=== PATIENT | female | born 1960 | race Two or more races ===

== ENCOUNTER 2018-01-27 12:03 | Outpatient (CLI) | payer OTHER ==
[~2018-01-27 12:03] MED LIST: CATAFLAM50 MG PO; ORPH100T PO; PRISTIQ ER50 MG; RESTORIL30 M1; TRANXENE T-TA3.75 MG
== END 2018-01-27 16:23 | disposition home or self-care (01) ==
LOC: SONOGRAMA 12:03
DX: E06.9 Thyroiditis, unspecified (principal); E03.5 Myxedema coma; E11.65 Type 2 diabetes mellitus with hyperglycemia

== ENCOUNTER 2018-07-31 09:58 | Outpatient (CLI) | payer OTHER | END 2018-07-31 10:04 | disposition home or self-care (01) | LOC: SONOGRAMA 09:58 | DX: E05.00 Thyrotoxicosis with diffuse goiter without thyrotoxic crisis or storm (principal); E04.1 Nontoxic single thyroid nodule ==

== ENCOUNTER → 2018-07-31 13:47 | Outpatient (CLI) | payer OTHER | END | disposition home or self-care (01) | LOC: LAB 13:47 | DX: E05.00 Thyrotoxicosis with diffuse goiter without thyrotoxic crisis or storm (principal); E04.1 Nontoxic single thyroid nodule; E11.65 Type 2 diabetes mellitus with hyperglycemia ==

== ENCOUNTER 2018-08-09 13:44 | Outpatient (CLI) | payer OTHER | END 2018-08-09 13:47 | disposition home or self-care (01) | LOC: SONOGRAMA 13:44 | DX: R10.2 Pelvic and perineal pain (principal); E05.21 Thyrotoxicosis with toxic multinodular goiter with thyrotoxic crisis or storm; E78.4 Other hyperlipidemia; J32.8 Other chronic sinusitis; G43.901 Migraine, unspecified, not intractable, with status migrainosus; F51.05 Insomnia due to other mental disorder; H53.8 Other visual disturbances ==

== ENCOUNTER → 2019-05-01 | Outpatient (CLI) | payer OTHER | END | disposition home or self-care (01) | LOC: SONOGRAMA 13:19 → MAMO-SONO 14:15 | DX: E05.00 Thyrotoxicosis with diffuse goiter without thyrotoxic crisis or storm (principal); E04.1 Nontoxic single thyroid nodule ==

== ENCOUNTER 2020-05-20 13:58 | Outpatient (CLI) | payer OTHER | END 2020-05-20 14:08 | disposition home or self-care (01) | LOC: SONOGRAMA 13:58 | PROVIDERS: ATTEND Internal Medicine | DX: E05.00 Thyrotoxicosis with diffuse goiter without thyrotoxic crisis or storm (principal); E04.1 Nontoxic single thyroid nodule ==

== ENCOUNTER → 2020-08-14 14:05 | Outpatient (CLI) | payer OTHER ==
[~2020-08-14 14:05] MED LIST changes: -CLEOCIN HCL300 MG PO; -RESTORIL30 M1 PO; -TAPAZOLE5 M1 PO; -TRANXENE T-TAB7.5 MG
== END | disposition home or self-care (01) ==
LOC: LAB 14:05
PROVIDERS: ATTEND Radiology Diagnostic Radiology
DX: N20.0 Calculus of kidney (principal)

== ENCOUNTER → 2020-08-14 | Outpatient (CLI) | payer OTHER ==
[~2020-08-14] MED LIST changes: +CLEOCIN HCL300 MG PO; +RESTORIL30 M1 PO; +TAPAZOLE5 M1 PO; +TRANXENE T-TAB7.5 MG
== END | disposition home or self-care (01) ==
LOC: SONOGRAMA → OFIC 805 13:00 → SONOGRAMA 13:00
PROVIDERS: ATTEND Pathology Anatomic Pathology
DX: K11.3 Abscess of salivary gland (principal); K11.5 Sialolithiasis; H61.23 Impacted cerumen, bilateral

== ENCOUNTER 2020-08-22 08:08 | Outpatient (CLI) | payer OTHER | END 2020-08-22 08:13 | disposition home or self-care (01) | LOC: LAB 08:08 | PROVIDERS: ATTEND Otolaryngology | DX: K11.5 Sialolithiasis (principal); M35.00 Sjogren syndrome, unspecified ==

== ENCOUNTER 2020-08-22 08:55 | Outpatient (CLI) | payer OTHER | END 2020-08-22 09:05 | disposition home or self-care (01) | LOC: TOM 08:55 | PROVIDERS: ATTEND Otolaryngology | DX: K11.5 Sialolithiasis (principal) | CPT/HCPCS: 70491; Q9965 ==

== ENCOUNTER → 2020-08-28 | Outpatient (CLI) | payer OTHER ==
[~2020-08-28] MED LIST changes: +TRANXENE T-TAB7.5 MG
== END | disposition home or self-care (01) ==
LOC: OFIC 805 13:15
PROVIDERS: ATTEND Otolaryngology
DX: K11.5 Sialolithiasis (principal); K11.3 Abscess of salivary gland

== ENCOUNTER 2020-09-02 15:27 | Emergency (ER) | payer OTHER ==
[~2020-09-02] VITALS: Ht 165.1 cm; Wt 76.7 kg
[~2020-09-02 15:27] MED LIST changes: -TRANXENE T-TAB7.5 MG
[2020-09-02] MEDS ORDERED: TRANXENE T-TAB7.5 MG (15:50)
== END 2020-09-02 19:31 | disposition home or self-care (01) ==
LOC: ER 15:27
DX: S83.8X2A Sprain of other specified parts of left knee, initial encounter (principal); S70.02XA Contusion of left hip, initial encounter; M12.562 Traumatic arthropathy, left knee; W07.XXXA Fall from chair, initial encounter; Y93.89 Activity, other specified; Y92.531 Health care provider office as the place of occurrence of the external cause; Y99.8 Other external cause status

== ENCOUNTER 2020-09-04 12:07 | Outpatient (CLI) | payer OTHER ==
[~2020-09-04 12:07] MED LIST changes: +TRANXENE T-TAB7.5 MG
== END 2020-09-04 13:00 | disposition home or self-care (01) ==
LOC: OFIC 805 12:07
PROVIDERS: ATTEND Otolaryngology
DX: K11.21 Acute sialoadenitis (principal); K11.5 Sialolithiasis

== ENCOUNTER 2020-09-22 08:35 | Day surgery (SDC) | payer OTHER ==
[~2020-09-22 08:35] MED LIST changes: +RESTORIL30 M1 PO; +TAPAZOLE5 M1 PO
[2020-09-22] MEDS ORDERED: CLEOCIN HCL300 MG PO (16:54)
== END 2020-09-22 20:00 | disposition home or self-care (01) ==
LOC: CIR.AMB 08:35
PROVIDERS: ATTEND Otolaryngology
DX: K11.5 Sialolithiasis (principal); Z20.828 Contact with and (suspected) exposure to other viral communicable diseases

== ENCOUNTER → 2020-10-02 | Outpatient (CLI) | payer OTHER ==
[~2020-10-02] MED LIST changes: +CLEOCIN HCL300 MG PO
== END | disposition home or self-care (01) ==
LOC: OFIC 805 12:17
PROVIDERS: ATTEND Otolaryngology
DX: K11.5 Sialolithiasis (principal); K11.3 Abscess of salivary gland

== ENCOUNTER 2020-12-30 11:26 | Outpatient (CLI) | payer OTHER | END 2020-12-30 16:07 | disposition home or self-care (01) | LOC: OFIC 805 11:26 | PROVIDERS: ATTEND Otolaryngology | DX: K11.5 Sialolithiasis (principal); K11.8 Other diseases of salivary glands ==

== ENCOUNTER → 2021-01-06 | Outpatient (CLI) | payer OTHER | END | disposition home or self-care (01) | LOC: RAD 14:28 | DX: M43.8X6 Other specified deforming dorsopathies, lumbar region (principal); M50.323 Other cervical disc degeneration at C6-C7 level; M54.5 Low back pain ==

== ENCOUNTER → 2021-06-23 08:00 | Outpatient (CLI) | payer OTHER | END | disposition home or self-care (01) | LOC: LAB 08:00 | PROVIDERS: ATTEND Internal Medicine Endocrinology, Diabetes & Metabolism | DX: E04.2 Nontoxic multinodular goiter (principal) ==

== ENCOUNTER 2021-06-23 11:49 | Outpatient (CLI) | payer OTHER | END 2021-06-23 11:59 | disposition home or self-care (01) | LOC: MAMO-SONO 11:49 | PROVIDERS: ATTEND Internal Medicine Endocrinology, Diabetes & Metabolism | DX: E04.2 Nontoxic multinodular goiter (principal); E05.00 Thyrotoxicosis with diffuse goiter without thyrotoxic crisis or storm; Z12.31 Encounter for screening mammogram for malignant neoplasm of breast ==

== ENCOUNTER 2021-06-23 12:13 | Outpatient (CLI) | payer OTHER | END 2021-06-23 12:18 | disposition home or self-care (01) | LOC: NUCLEAR 12:13 | PROVIDERS: ATTEND Internal Medicine Endocrinology, Diabetes & Metabolism | DX: M81.0 Age-related osteoporosis without current pathological fracture (principal) ==

== ENCOUNTER 2022-03-24 10:49 | Outpatient (CLI) | payer OTHER | END 2022-03-24 10:58 | disposition home or self-care (01) | LOC: RAD 10:49 | DX: M53.3 Sacrococcygeal disorders, not elsewhere classified (principal); M16.0 Bilateral primary osteoarthritis of hip ==

== ENCOUNTER 2022-03-25 15:04 | Outpatient (CLI) | payer OTHER | END 2022-03-25 15:11 | disposition home or self-care (01) | LOC: LAB 15:04 | PROVIDERS: ATTEND Radiology Diagnostic Radiology | DX: G43.919 Migraine, unspecified, intractable, without status migrainosus (principal) ==

== ENCOUNTER 2022-04-06 08:20 | Outpatient (CLI) | payer OTHER | END 2022-04-06 08:24 | disposition home or self-care (01) | LOC: RAD 08:20 | PROVIDERS: ATTEND Psychiatry & Neurology Pain Medicine | DX: G43.919 Migraine, unspecified, intractable, without status migrainosus (principal); E03.9 Hypothyroidism, unspecified | CPT/HCPCS: 70553; 76536; Q9965; 70546 ==

== ENCOUNTER 2022-04-06 10:42 | Outpatient (CLI) | payer OTHER | END 2022-04-06 10:46 | disposition home or self-care (01) | LOC: NUCLEAR 10:42 | PROVIDERS: ATTEND Obstetrics & Gynecology | DX: M81.0 Age-related osteoporosis without current pathological fracture (principal) ==

== ENCOUNTER 2022-09-22 14:35 | Outpatient (CLI) | payer OTHER | END 2022-09-22 14:42 | disposition home or self-care (01) | LOC: MAMO-SONO 14:35 | PROVIDERS: ATTEND General Practice | DX: N63.0 Unspecified lump in unspecified breast (principal) ==

== ENCOUNTER → 2022-10-28 15:32 | Outpatient (CLI) | payer OTHER | END | disposition home or self-care (01) | LOC: LAB 15:32 | DX: D35.2 Benign neoplasm of pituitary gland (principal); R94.7 Abnormal results of other endocrine function studies ==

== ENCOUNTER 2022-11-23 09:48 | Outpatient (CLI) | payer OTHER | END 2022-11-23 10:01 | disposition home or self-care (01) | LOC: MRI 09:48 | PROVIDERS: ATTEND Psychiatry & Neurology Pain Medicine | DX: D35.2 Benign neoplasm of pituitary gland (principal) | CPT/HCPCS: 70553; Q9965 ==

== ENCOUNTER 2023-04-14 09:56 | Outpatient (CLI) | payer OTHER | END 2023-04-14 10:05 | disposition home or self-care (01) | LOC: SONOGRAMA 09:56 | DX: M75.81 Other shoulder lesions, right shoulder (principal) ==

== ENCOUNTER 2023-09-16 13:48 | Outpatient (CLI) | payer OTHER | END 2023-09-16 13:51 | disposition home or self-care (01) | LOC: SONOGRAMA 13:48 | DX: E06.3 Autoimmune thyroiditis (principal); I11.9 Hypertensive heart disease without heart failure; E22.1 Hyperprolactinemia; E05.00 Thyrotoxicosis with diffuse goiter without thyrotoxic crisis or storm; E78.2 Mixed hyperlipidemia; E04.0 Nontoxic diffuse goiter; Z88.0 Allergy status to penicillin ==

== ENCOUNTER → 2023-10-15 11:17 | Outpatient (CLI) | payer OTHER ==
[2023-10-15 12:41] LABS: CREATININE SERUM 0.87 mg/dL (0.55-1.02)
== END | disposition home or self-care (01) ==
LOC: LAB 11:17
DX: R51.9 Headache, unspecified (principal)

== ENCOUNTER → 2023-10-24 | Outpatient (CLI) | payer OTHER | END | disposition home or self-care (01) | LOC: MRI 10:39 | DX: D35.2 Benign neoplasm of pituitary gland (principal); R94.7 Abnormal results of other endocrine function studies; R51.9 Headache, unspecified | CPT/HCPCS: 70553; Q9965 ==

== ENCOUNTER → 2024-09-06 10:52 | Outpatient (CLI) | payer OTHER ==
[2024-09-06 12:51] LABS: CREATININE SERUM 0.93 mg/dL (0.55-1.02)
== END | disposition home or self-care (01) ==
LOC: LAB 10:52
PROVIDERS: ATTEND Radiology Diagnostic Radiology
DX: R51.9 Headache, unspecified (principal)

== ENCOUNTER 2024-09-20 10:03 | Outpatient (CLI) | payer OTHER | END 2024-09-20 10:08 | disposition home or self-care (01) | LOC: MRI 10:03 | PROVIDERS: ATTEND Psychiatry & Neurology Pain Medicine | DX: R57.9 Shock, unspecified (principal); G43.909 Migraine, unspecified, not intractable, without status migrainosus; G31.84 Mild cognitive impairment of uncertain or unknown etiology; D35.2 Benign neoplasm of pituitary gland; E22.1 Hyperprolactinemia | CPT/HCPCS: 70553; Q9965 ==